=== PATIENT | female | born 2000 | race Caucasian/White ===

== ENCOUNTER 2022-06-11 19:07 | Emergency (ER) | payer MEDICAID ==
[~2022-06-11] VITALS: Ht 157.5 cm; Wt 91.0 kg
[2022-06-11 19:13] VITALS: BP 120/55
[2022-06-11] MEDS ORDERED: ACETAMINOPHEN 325MG TABLET PO ONE (22:45)
[2022-06-11] MEDS ORDERED: IBUP-2028 MT (23:30)
== END 2022-06-11 23:50 | disposition home or self-care (01) ==
LOC: ER 19:07
DX: M25.532 Pain in left wrist (principal); M79.605 Pain in left leg; M79.10 Myalgia, unspecified site; V43.52XA Car driver injured in collision with other type car in traffic accident, initial encounter; Y93.89 Activity, other specified; Y92.488 Other paved roadways as the place of occurrence of the external cause
CPT/HCPCS: 29125; 73100; 81025; 99283